=== PATIENT | female | born 1950 | race Caucasian/White ===

== ENCOUNTER 2018-03-18 20:47 | Emergency (ER) | payer BC, MEDICARE ==
[2018-03-18 21:23] LABS: BILIRUBIN,URINE NEGATIVE (NEGATIVE); GLUCOSE, URINE (UA) NEGATIVE (NEGATIVE); KETONES,URINE (UA) NEGATIVE (NEGATIVE); LEUKOCYTE ESTERASE, URINE LARGE (NEGATIVE); NITRITE,URINE POSITIVE (NEGATIVE); OCCULT BLOOD,URINE MODERATE (NEGATIVE); PROTEIN,URINE 100 mg/dL (NEGATIVE); UROBILINOGEN,URINE 0.2 (NORMAL) E.U./dL (NORMAL)
[2018-03-18 21:25] LABS: CLARITY,URINE CLEAR (CLEAR)
[2018-03-18 21:29] LABS: BACTERIA,URINE Moderate /HPF (None Seen); SQUAMOUS EPITHELIAL CELL,UR NONE SEEN (<= Few); WBC CLUMPS,URINE PRESENT
--- NOTE | 2018-03-18 21:53 | ED Physician Documentation ---
PD HPI FEMALE - Stated complaint Stated Complaint: FEMALE - Chief complaint Chief Complaint: Abd Pain - History obtained from History obtained from: Patient - History of Present Illness Timing - onset: How many days ago (2-3) Timing - duration: Days Timing - details: Gradual onset, Waxing and waning Associated symptoms: Dysuria, Urinary frequency. No: Fever, Abdominal pain, Back pain, Vaginal bleeding, Vaginal discharge Contributing factors: No: Exposed to STD Similar symptoms before: Diagnosis (utis in the past) Review of Systems Constitutional: denies: Fever, Chills GI: reports: Nausea. 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 HEENT: Tonsil/Adenoidectomy, Other - Present Medications Home Medications: Ambulatory Orders Medication Instructions Recorded Confirmed Sulfamethox/Trimeth 800/160 1 each PO BID #14 tablet 03/18/18 [Bactrim Ds 800/160] - Allergies Allergies/Adverse Reactions: Allergies Allergy/AdvReac Type Severity Reaction Status Date / Time Penicillins AdvReac Unknown Verified 03/18/18 20:59 - Social History Does the pt smoke?: Yes Smoking Status: Current every day smoker Does the pt drink ETOH?: No Does the pt have substance abuse?: Yes Substance Use and Type: Marijuana - Immunizations Immunizations are current?: Yes PD ED PE NORMAL - Vitals Vital signs reviewed: Yes - General General: Alert and oriented X 3, No acute distress, Well developed/nourished - Abdomen Abdomen: Soft, Non tender - Female Female : Deferred - Rectal Rectal: Deferred - Back Back: No CVA TTP - Derm Derm: Normal color, Warm and dry - Neuro Neuro: Alert and oriented X 3, No motor deficit, Normal speech Results - Vitals Vitals: Vital Signs - 24 hr 03/18/18 03/18/18 03/18/18 20:55 21:00 22:14 Temperature 36.6 C 37.4 C Heart Rate 111 H 98 Respiratory 18 20 Rate Blood Pressure 172/121 H 180/98 H 146/100 H O2 Saturation 96 98 Oxygen O2 Source Room air - Labs Labs: Microbiology 03/18/18 21:00 Urine Culture - Preliminary Urine,Clean Catch Escherichia Coli Laboratory Tests 03/18/18 21:00 Urine Color YELLOW Urine Clarity CLEAR Urine pH 7.0 Ur Specific Nathalie 1.020 Urine Protein 100 H Urine Glucose (UA) NEGATIVE Urine Ketones NEGATIVE Urine Occult Blood MODERATE H Urine Nitrite POSITIVE H Urine Bilirubin NEGATIVE Urine Urobilinogen 0.2 (NORMAL) Ur Leukocyte Esterase LARGE H Urine RBC 6-10 H Urine WBC >25 H Urine WBC Clumps PRESENT Ur Squamous Epith Cells NONE SEEN Urine Bacteria Moderate H Ur Microscopic Review INDICATED Urine Culture Comments INDICATED PD MEDICAL DECISION MAKING - ED course Complexity details: reviewed results, considered differential, d/w patient Departure - Departure Disposition: Home, Self Care Clinical Impression: Urinary tract infection Qualifiers: Urinary tract infection type: acute cystitis Hematuria presence: without hematuria Qualified Code(s): N30.00 - Acute cystitis without hematuria Condition: Stable Record reviewed to determine appropriate education?: Yes Instructions: ED UTI Cystitis Female Follow-Up: Caroline Adam MD [Primary Care Provider] - Prescriptions: Sulfamethox/Trimeth 800/160 [Bactrim Ds 800/160] 1 each PO BID #14 tablet Comments: Drink lots of fluids. You continue the [id number] medication for the bladder for comfort. Add Bactrim twice daily for a week. Recheck if not improved over the next couple of days. We will do a urine culture and call you if it appears that the antibiotic you are on is not going to be effective. This will result in a couple of days. Discharge Date/Time: 03/18/18 22:27
[2018-03-18] MEDS ORDERED: SULFAMETH/TRIMETH DS 800/160 MG TABLET PO STA (22:05)
[2018-03-18 22:22] VITALS: BP 146/100
== END 2018-03-18 22:27 | disposition home or self-care (01) ==
LOC: ED 20:47
DX: N30.00 Acute cystitis without hematuria (principal); F17.200 Nicotine dependence, unspecified, uncomplicated
CPT/HCPCS: 81001; 87086; 87181; 99283; A9270; 81003

== ENCOUNTER 2018-12-21 16:38 | Emergency (ER) | payer MEDICARE, OTHER ==
--- NOTE | 2018-12-21 16:44 | ED Physician Documentation ---
PD HPI FEMALE - Stated complaint Stated Complaint: FEMALE - Chief complaint Chief Complaint: UTI - History obtained from History obtained from: Patient - History of Present Illness Timing - onset: How many days ago (2-3) Timing - duration: Days (2-3) Timing - details: Gradual onset, Still present Associated symptoms: Dysuria, Urinary frequency. No: Fever, Back pain, Vaginal discharge Similar symptoms before: Diagnosis (UTIs occasionally) Recently seen: Not recently seen Review of Systems Constitutional: denies: Fever, Chills, Myalgias Cardiac: denies: Chest pain / pressure, Pedal edema, Calf pain Respiratory: denies: Dyspnea, Cough GI: reports: Nausea. 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 HEENT: Tonsil/Adenoidectomy, Other - Present Medications Home Medications: Ambulatory Orders Medication Instructions Recorded Confirmed Sulfamethox/Trimeth 800/160 1 each PO BID #14 tablet 03/18/18 [Bactrim Ds 800/160] Phenazopyridine HCl [Pyridium] 200 mg PO TID PRN #6 tablet 12/21/18 Sulfamethox/Trimeth 800/160 1 each PO BID #14 tablet 12/21/18 [Bactrim Ds 800/160] - Allergies Allergies/Adverse Reactions: Allergies Allergy/AdvReac Type Severity Reaction Status Date / Time Penicillins AdvReac Unknown Verified 03/18/18 20:59 - Social History Does the pt smoke?: Yes Smoking Status: Current every day smoker Does the pt drink ETOH?: No Does the pt have substance abuse?: Yes - Immunizations Immunizations are current?: Yes PD ED PE NORMAL - Vitals Vital signs reviewed: Yes - General General: Alert and oriented X 3, No acute distress, Well developed/nourished - Neck Neck: Supple, no meningeal sign, No adenopathy - Cardiac Cardiac: RRR, No murmur - Respiratory Respiratory: Clear bilaterally - Abdomen Abdomen: Normal bowel sounds, Soft, Non tender, Non distended - Female Female : Deferred - Back Back: No CVA TTP - Derm Derm: Normal color, Warm and dry, No rash - Extremities Extremities: No tenderness to palpate, Normal ROM s pain, No edema, No calf tenderness / cord - Neuro Neuro: Alert and oriented X 3, No motor deficit, Normal speech Results - Vitals Vitals: Oxygen O2 Source Room air - Labs Labs: Laboratory Tests 12/21/18 16:46 Urine Color YELLOW Urine Clarity HAZY Urine pH 6.5 Ur Specific [place] 1.020 Urine Protein NEGATIVE Urine Glucose (UA) NEGATIVE Urine Ketones NEGATIVE Urine Occult Blood NEGATIVE Urine Nitrite NEGATIVE Urine Bilirubin NEGATIVE Urine Urobilinogen 0.2 (NORMAL) Ur Leukocyte Esterase TRACE H Urine RBC 6-10 H Urine WBC 6-10 H Ur Squamous Epith Cells RARE Squamous Urine Bacteria None Seen Ur Microscopic Review INDICATED PD MEDICAL DECISION MAKING - ED course Complexity details: considered differential (BP is elevated her but she says normal is about 140-150/90 and is always very elevated when seen in office/etc but is okay at home. Has UTI symptoms and UA is consistent enough. ), d/w patient Departure - Departure Disposition: Home, Self Care Clinical Impression: Elevated blood pressure reading Cystitis, acute Qualifiers: Hematuria presence: without hematuria Qualified Code(s): N30.00 - Acute cystitis without hematuria Condition: Stable Record reviewed to determine appropriate education?: Yes Instructions: ED Hypertension Poss, ED UTI Cystitis Female Follow-Up: Caroline Adam MD [Primary Care Provider] - Prescriptions: Phenazopyridine HCl [Pyridium] 200 mg PO TID PRN #6 tablet PRN Reason: dysuria Sulfamethox/Trimeth 800/160 [Bactrim Ds 800/160] 1 each PO BID #14 tablet Comments: Your urine does look like an infection so we will treated with the Bactrim. He can use phenazopyridine either prescription or [id number] (Azo) to help with urinary discomfort. Tylenol or ibuprofen if needed for pains. Recheck if not improving over the next several days. Your blood pressure is elevated here. I understand that it elevates when you are have been medical care and such and it usually is better than that. Recheck at when you are well to ensure that it is not significantly elevated and follow- up with your primary care if it is consistently elevated. Discharge Date/Time: 12/21/18 17:28
[2018-12-21 16:55] LABS: BILIRUBIN,URINE NEGATIVE (NEGATIVE); GLUCOSE, URINE (UA) NEGATIVE (NEGATIVE); KETONES,URINE (UA) NEGATIVE (NEGATIVE); LEUKOCYTE ESTERASE, URINE TRACE (NEGATIVE); NITRITE,URINE NEGATIVE (NEGATIVE); OCCULT BLOOD,URINE NEGATIVE (NEGATIVE); PH,URINE 6.5 PH (5.0-7.5); PROTEIN,URINE NEGATIVE (NEGATIVE); UROBILINOGEN,URINE 0.2 (NORMAL) E.U./dL (NORMAL)
[2018-12-21 17:00] LABS: CLARITY,URINE HAZY (CLEAR)
[2018-12-21] MEDS ORDERED: PHENAZOPYRIDINE 100 MG TABLET PO STA (17:02)
[2018-12-21] MEDS ORDERED: SULFAMETH/TRIMETH DS 800/160 MG TABLET PO STA (17:02)
[2018-12-21 17:08] LABS: BACTERIA,URINE None Seen /HPF (None Seen); SQUAMOUS EPITHELIAL CELL,UR RARE Squamous (<= Few)
[2018-12-21 17:31] VITALS: BP 210/100
== END 2018-12-21 17:28 | disposition home or self-care (01) ==
LOC: ED 16:38
DX: N30.00 Acute cystitis without hematuria (principal); I10 Essential (primary) hypertension; F17.200 Nicotine dependence, unspecified, uncomplicated
CPT/HCPCS: 81001; 99283; A9270; 81003

== ENCOUNTER 2019-02-17 17:26 | Outpatient (CLI) | payer MEDICARE, OTHER ==
--- NOTE | 2019-02-18 10:03 | Ultrasound Report ---
Reason: RUQ PAIN Procedure Date: 02/17/2019 Accession Number: [id number] / [id number] Procedure: US - Abdomen Limited CPT Code: FULL RESULT: EXAM: ABDOMEN ULTRASOUND LIMITED, RUQ EXAM DATE: 02/17/2019 05:42 PM. CLINICAL HISTORY: Right upper quadrant abdominal pain. COMPARISON: None. TECHNIQUE: Real-time scanning was performed with static images obtained. FINDINGS: Liver: Normal in size and echotexture. Right lobe of the liver measures at least 18 cm. Within the liver is a 5.5 x 5.1 x 4.6 cm complex cyst in the left lobe as well as a 1.3 x 1.2 x 1.2 cm septated cyst near the hilum. Main portal vein flow: Hepatopetal. Gallbladder: Normal. No stones, wall thickening, or sonographic Cota's sign. Biliary System: CBD measures 4 mm. No intrahepatic or extrahepatic ductal dilatation. Other: The right kidney measures up to 10.1 cm in maximal sagittal dimension and demonstrates mild to moderate hydronephrosis. A nonobstructing 0.6 cm calculus is seen in the mid right kidney. A small amount of free perinephric fluid is noted, 2.7 x 0.8 cm. IMPRESSION: Hydronephrosis and a small amount of perinephric fluid as well as complex cystic lesions in the liver. RADIA
== END 2019-02-17 17:27 | disposition home or self-care (01) ==
LOC: DI 17:26
PROVIDERS: ATTEND Internal Medicine
DX: R10.11 Right upper quadrant pain (principal); N13.30 Unspecified hydronephrosis; N20.0 Calculus of kidney; K76.89 Other specified diseases of liver
CPT/HCPCS: 76705

== ENCOUNTER 2021-05-30 17:00 | Emergency (ER) | payer MEDICARE, OTHER ==
[2021-05-30 18:17] LABS: BASOPHILS # (AUTO) 0.1 10^3/uL (0.0-0.1); BASOPHILS % (AUTO) 0.7 %; EOSINOPHILS # (AUTO) 0.1 10^3/uL (0.0-0.7); EOSINOPHILS % (AUTO) 0.6 %; HCT - HEMATOCRIT 47.7 % (37.0-47.0); HGB - HEMOGLOBIN 16.1 g/dL (12.0-16.0); LYMPHOCYTES # (AUTO) 1.9 10^3/uL (1.5-3.5); LYMPHOCYTES % (AUTO) 19.3 %; MEAN CORPUSCULAR HEMOGLOBIN 30.2 pg (27.0-31.0); MEAN CORPUSCULAR HGB CONC 33.8 g/dL (32.0-36.0); MEAN CORPUSCULAR VOLUME 89.5 fL (81.0-99.0); MEAN PLATELET VOLUME 10.8 fL (7.9-10.8); MONOCYTES # (AUTO) 0.6 10^3/uL (0.0-1.0); MONOCYTES % (AUTO) 5.6 %; NEUTROPHILS # (AUTO) 7.3 10^3/uL (1.5-6.6); NEUTROPHILS % (AUTO) 73.4 %; PLT - PLATELET COUNT 337 10^3/uL (130-450); RED BLOOD COUNT 5.33 10^6/uL (4.20-5.40); RED CELL DISTRIBUTION WIDTH 12.4 % (12.0-15.0)
[2021-05-30] MEDS ORDERED: LORazepam 2 MG/ML VIAL IVP STA (18:23)
--- NOTE | 2021-05-30 18:26 | ED Physician Documentation ---
History of Present Illness - Stated complaint Stated Complaint: LISSETT GORDILLO HR - Chief complaint Chief Complaint: MHE - History obtained from History obtained from: Patient - Additonal information Additional information: Patient comes emergency department complaining of anxiety for the last month. She states it started when her dog and that before that, she was not somebody who really struggled with mental health issues. She does, however, state that she had been placed on Celexa around that time for "nervousness" and panic attacks. Patient states that she took the Celexa for 5 days but did not feel it was helping and thought that she may be getting worse on the Celexa and so instead, was switched to Zoloft. Patient has been on this for the last few weeks but states that her anxiety seems worse and so she has been taking spot doses of Xanax. However, she states her primary doctor is trying to wean her down on the Xanax. She was previously on 0.5 mg twice daily as needed, but is now on 0.25 mg. She states that it does not seem to be controlling her anxiety as much. She is also on hydroxyzine which was just started today by her mental health provider. She states that she took a dose at 10:00 this morning 25 mg, and it does not seem to be helping at all. Patient states she is just constantly having palpitations and feeling shaky and anxious. She states that she does sleep at night. She is not on any other substances. No history of thyroid disorder. No other complaints at this time. Review of Systems Ten Systems: 10 systems reviewed and negative Constitutional: reports: Reviewed and negative Eyes: reports: Reviewed and negative Ears: reports: Reviewed and negative Nose: reports: Reviewed and negative Throat: reports: Reviewed and negative Cardiac: reports: Palpitations. denies: Chest pain / pressure Respiratory: reports: Reviewed and negative. denies: Dyspnea GI: reports: Reviewed and negative. denies: Nausea : reports: Reviewed and negative Skin: reports: Reviewed and negative Musculoskeletal: reports: Reviewed and negative Neurologic: reports: Reviewed and negative Psychiatric: reports: Anxiety. 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 HEENT: Tonsil/Adenoidectomy, Other - Present Medications Home Medications: Ambulatory Orders Medication Instructions Recorded Confirmed Alprazolam [Xanax] 0.25 mg PO BID 05/30/21 05/30/21 Sertraline [Zoloft] 50 mg PO HS 05/30/21 05/30/21 hydrOXYzine pamoate [Hydroxyzine 25 mg PO TID PRN 05/30/21 05/30/21 Pamoate] - Allergies Allergies/Adverse Reactions: Allergies Allergy/AdvReac Type Severity Reaction Status Date / Time Penicillins AdvReac Unknown Verified 05/30/21 17:06 - Social History Does the pt smoke?: Yes Smoking Status: Current every day smoker Does the pt drink ETOH?: No Does the pt have substance abuse?: Yes - Immunizations Immunizations are current?: Yes PD ED PE NORMAL - Vitals Vital signs reviewed: Yes - General General: Alert and oriented X 3, Other (Patient appears anxious, otherwise in no apparent distress) - HEENT HEENT: Atraumatic, PERRL, EOMI, Moist mucous membranes - Neck Neck: Supple, no meningeal sign - Cardiac Cardiac: No murmur, Other (Tachycardic rate, regular rhythm, no murmur) - Respiratory Respiratory: No respiratory distress, Clear bilaterally - Abdomen Abdomen: Soft, Non distended - Derm Derm: Normal color, Warm and dry, No rash - Extremities Extremities: No deformity, No edema - Neuro Neuro: Alert and oriented X 3, manufacturing 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 No: Q waves Compare to prior EKG: Old EKG unavailable - Labs Labs: Laboratory Tests 08/03/1505/30/21 05/30/21 18:12 18:12 18:12 WBC 10.0 RBC 5.33 Hgb 16.1 H Hct 47.7 H MCV 89.5 MCH 30.2 MCHC 33.8 RDW 12.4 Plt Count 337 MPV 10.8 Neut # (Auto) 7.3 H Lymph # (Auto) 1.9 Gillespie # (Auto) 0.6 Eos # (Auto) 0.1 Baso # (Auto) 0.1 Absolute Nucleated RBC 0.00 Nucleated RBC % 0.0 Sodium 141 Potassium 3.6 Chloride 102 Carbon Dioxide 23 Anion Gap 16.0 H BUN 13 Creatinine 0.7 Estimated GFR (MDRD) 83 L Glucose 111 H Calcium 9.8 Total Bilirubin 0.9 AST 17 ALT 19 Alkaline Phosphatase 89 Troponin I High Sens 3.5 Total Protein 8.7 H Albumin 5.0 Globulin 3.7 Albumin/Globulin Ratio 1.4 Lipase 29 TSH 05/30/21 18:12 WBC RBC Hgb Hct MCV MCH MCHC RDW Plt Count MPV Neut # (Auto) Lymph # (Auto) Gillespie # (Auto) Eos # (Auto) Baso # (Auto) Absolute Nucleated RBC Nucleated RBC % Sodium Potassium Chloride Carbon Dioxide Anion Gap BUN Creatinine Estimated GFR (MDRD) Glucose Calcium Total Bilirubin AST ALT Alkaline Phosphatase Troponin I High Sens Total Protein Albumin Globulin Albumin/Globulin Ratio Lipase TSH 2.53 PD MEDICAL DECISION MAKING - ED course Complexity details: reviewed results, re-evaluated patient, considered differential, d/w patient ED course: The patient was quite anxious in the emergency department and I spoke at length with her to try to determine exactly what she was hoping to accomplish by her visit. The patient initially complained that she felt that her medications were all making her more anxious. She wanted to have her Zoloft dose cut in half, but I told the patient that I did not change chronic medications from the emergency department, particularly psychiatric meds. Additionally, the patient wanted to know why her new medication was not working after 1 dose and I did discuss with her that she has just started this medication so was too early to tell whether it would work or not. We did discuss increasing dosing potentially on her Xanax, though it does sound like her provider is trying to wean her down on this in favor of a more chronic regimen. I discussed with the patient that perhaps her anxiety is partially related to grief over the loss of her dog, but the patient was resistant to this idea. She repeatedly asked why she keeps having anxiety, but was not really open to social work evaluation, stating that she has never had mental health issues before and she does not think that she needs to speak with a mental health clinician about this. The patient however stated she "just wants to know what is going on". At this point explained to her that our role in the emergency department with regard to mental health crises and that this involves treating the acute episode, medical clearance, and then the decision as to whether to pursue outpatient or inpatient options for further treatment. The patient at this point stated that she really just wants to know if her heart is okay because has been racing every time she has an anxiety attack. We discussed that I would order basic laboratory studies and EKG and at this point patient also did accept the idea of having a dose of an anxiolytic in the emergency department. She was given 2 mg of Ativan IV. Her EKG showed diffuse, nondiagnostic ST depressions of less than 1 mm throughout most of her leads and troponin was negative. At this point in time, the patient will be signed out to Dr. Young pending repeat EKG and troponin. She will also be pending reevaluation and final disposition.
[2021-05-30 18:34] LABS: ALBUMIN/GLOBULIN RATIO 1.4 (1.0-2.2); BILIRUBIN,TOTAL 0.9 mg/dL (0.2-1.0); CALCIUM 9.8 mg/dL (8.5-10.3); CREATININE 0.7 mg/dL (0.4-1.0); POTASSIUM 3.6 mmol/L (3.5-5.0); TOTAL PROTEIN 8.7 g/dL (6.7-8.2)
[2021-05-30 22:01] VITALS: BP 135/95
--- NOTE | 2021-05-31 09:21 | ED Physician Documentation ---
ED Addendum - Addendum Addendum: 05/31/21 09:[address] received sign out from Dr. Avalos at end of her shift. patient presented for episodic rapid palpitations without chest pain. possible component of anxiety. EKG showed minimal but diffuse ST depression (1 mm in V3-V6, I, aVL). normal troponin. she was given 2mg IV lorazepam and reported significant improvement with this. Her repeat EKG shows 106 bpm, sinus tachycardia, normal axis, isolated QIII but no ST changes. her repeat (2-hour) troponin remains normal, and d-dimer is also normal. I discussed these results with patient and she is comfortable with discharge home. As noted on Dr. Avalos's HPI, patient tells me her PMD is weaning her off of xanax. She was prescribed hydroxyzine earlier today but says she had no improvement in her symptoms with this medication. I provided a prescription for a short course of lorazepam which she is instructed to use sparingly and only if her current regimen is ineffective in controlling rapid palpitations if they are associated with anxiety. she is encouraged to return if worse in any way.
== END 2021-05-30 22:00 | disposition home or self-care (01) ==
LOC: ED 17:00
DX: R00.2 Palpitations (principal); F41.9 Anxiety disorder, unspecified; I10 Essential (primary) hypertension; H54.7 Unspecified visual loss; F17.200 Nicotine dependence, unspecified, uncomplicated
CPT/HCPCS: 36415; 80053; 83690; 84443; 84484; 85025; 85379; 93005; 96374; 99283; 99284; J2060

== ENCOUNTER 2021-06-04 10:58 | Emergency (ER) | payer MEDICARE, OTHER ==
[2021-06-04] MEDS ORDERED: LORazepam 0.5 MG TABLET PO STA (13:04)
--- NOTE | 2021-06-04 13:12 | ED Physician Documentation ---
History of Present Illness - Stated complaint Stated Complaint: MHE - Chief complaint Chief Complaint: General - History obtained from History obtained from: Patient, Friend - History of Present Illness Timing: Other (1 month) Pain level max: 0 Pain level now: 0 - Additonal information Additional information: 70-year-old female states she has had increasing anxiety over the past month. She states that this is worsened since her dog . She has been working with her doctor and a prescriber. She was on Xanax and said that this was helping but they did not want to have her on Xanax long-term. They tried Cymbalta and now Zoloft. She has also been trialed on hydroxyzine. She states she just does not feel well and does not know what to do. She feels like she is very anxious and having panic attacks. She states she was seen here a week ago and was given Ativan which helped. She does not feel suicidal or homicidal. 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 HEENT: Chronic vision loss Psych: Anxiety Derm: None - Past Surgical History Past Surgical History: Yes /CUTTER APPRENTICE HAND: Hysterectomy HEENT: Tonsil/Adenoidectomy, Other - Present Medications Home Medications: Ambulatory Orders Medication Instructions Recorded Confirmed Alprazolam [Xanax] 0.25 mg PO BID 05/30/21 05/30/21 LORazepam [Ativan] 0.5 mg PO TID PRN #10 tablet 05/30/21 Sertraline [Zoloft] 50 mg PO HS 05/30/21 05/30/21 hydrOXYzine pamoate [Hydroxyzine 25 mg PO TID PRN 05/30/21 05/30/21 Pamoate] LORazepam [Ativan] 0.5 mg PO Q8H PRN #7 tablet 06/04/21 cephALEXin [Keflex] 500 mg PO Q6H #20 cap 06/04/21 - Allergies Allergies/Adverse Reactions: Allergies Allergy/AdvReac Type Severity Reaction Status Date / Time nitrofurantoin AdvReac Unknown Verified 06/04/21 16:29 [From Macrobid] Penicillins AdvReac Unknown Verified 06/04/21 11:19 sulfamethoxazole AdvReac Nausea Verified 06/04/21 16:29 [From Bactrim] trimethoprim [From Bactrim] AdvReac Nausea Verified 06/04/21 16:29 - Social History Does the pt smoke?: Yes Smoking Status: Current every day smoker Does the pt drink ETOH?: No Does the pt have substance abuse?: Yes - Immunizations Immunizations are current?: Yes - POLST Patient has POLST: No PD ED PE NORMAL - Vitals Vital signs reviewed: Yes - General General: Alert and oriented X 3, No acute distress - HEENT HEENT: Moist mucous membranes, Other (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) - Neck Neck: Supple, no meningeal sign - Cardiac Cardiac: RRR - Respiratory Respiratory: No respiratory distress, Clear bilaterally - Derm Derm: Warm and dry - Neuro Neuro: Alert and oriented X 3 - Psych Psych: Other (Anxious appearing) Results - Vitals Vitals: Vital Signs - 24 hr 06/04/21 06/04/21 06/04/21 11:11 16:02 22:28 Temperature 36.8 C 36.7 C 36.7 C Heart Rate 96 95 72 Respiratory 18 16 17 Rate Blood Pressure 151/104 H 153/95 H 183/100 H O2 Saturation 98 97 100 Oxygen O2 Source Room air - EKG (time done) 1349 Rate: Rate (enter#) (93) Rhythm: NSR [place]: Normal Intervals: Normal IA QRS: Normal Ischemia: Non specific changes - Labs Labs: Laboratory Tests 06/04/21 06/04/21 06/04/21 13:42 13:42 13:42 WBC 13.2 H RBC 5.20 Hgb 15.8 Hct 46.1 MCV 88.7 MCH 30.4 MCHC 34.3 RDW 12.6 Plt Count 304 MPV 11.0 H Neut # (Auto) 10.8 H Lymph # (Auto) 1.7 Hughes # (Auto) 0.6 Eos # (Auto) 0.0 Baso # (Auto) 0.1 Absolute Nucleated RBC 0.00 Nucleated RBC % 0.0 Sodium 141 Potassium 3.8 Chloride 104 Carbon Dioxide 22 Anion Gap 15.0 H BUN 15 Creatinine 0.7 Estimated GFR (MDRD) 83 L Glucose 95 Calcium 9.6 Phosphorus 4.1 Magnesium 2.2 Total Bilirubin 0.9 AST 18 ALT 20 Alkaline Phosphatase 88 Total Creatine Kinase Total Protein 7.6 Albumin 4.6 Globulin 3.0 Albumin/Globulin Ratio 1.5 Lipase 37 TSH 1.49 Urine Color Urine Clarity Urine pH Ur Specific [place] Urine Protein Urine Glucose (UA) Urine Ketones Urine Occult Blood Urine Nitrite Urine Bilirubin Urine Urobilinogen Ur Leukocyte Esterase Urine RBC Urine WBC Ur Epithelial Cells Ur Squamous Epith Cells Urine Bacteria Ur Microscopic Review Urine Culture Comments Nasal Adenovirus (PCR) Nasal B. parapertussis DNA (PCR) Nasal Coronavir 229E PCR Nasal Coronavir HKU1 PCR Nasal Coronavir NL63 PCR Nasal Coronavir OC43 PCR Nasal Enterovir/Rhinovir PCR Nasal Influenza B PCR Nasal Influenza A PCR Nasal Parainfluen 1 PCR Nasal Parainfluen 2 PCR Nasal Parainfluen 3 PCR Nasal Parainfluen 4 PCR Nasal RSV (PCR) Nasal B.pertussis DNA PCR Nasal C.pneumoniae (PCR) Narendra Human Metapneumo PCR Nasal M.pneumoniae (PCR) Nasal SARS-CoV-2 (PCR) Salicylates < 6.0 Urine Opiates Screen Ur Oxycodone Screen Urine Methadone Screen Ur Propoxyphene Screen Acetaminophen < 10 L Ur Barbiturates Screen Ur Tricyclics Screen Ur Phencyclidine Scrn Ur Amphetamine Screen U Methamphetamines Scrn U Benzodiazepines Scrn Urine Cocaine Screen U Cannabinoids Screen Ethyl Alcohol < 5.0 06/04/21 06/04/21 06/04/21 15:30 15:30 18:58 WBC RBC Hgb Hct MCV MCH MCHC RDW Plt Count MPV Neut # (Auto) Lymph # (Auto) Hughes # (Auto) Eos # (Auto) Baso # (Auto) Absolute Nucleated RBC Nucleated RBC % Sodium Potassium Chloride Carbon Dioxide Anion Gap BUN Creatinine Estimated GFR (MDRD) Glucose Calcium Phosphorus Magnesium Total Bilirubin AST ALT Alkaline Phosphatase Total Creatine Kinase 29 Total Protein Albumin Globulin Albumin/Globulin Ratio Lipase TSH Urine Color YELLOW Urine Clarity CLEAR Urine pH 6.0 Ur Specific [place] 1.010 Urine Protein NEGATIVE Urine Glucose (UA) NEGATIVE Urine Ketones 15 H Urine Occult Blood TRACE-INTA Urine Nitrite POSITIVE H Urine Bilirubin NEGATIVE Urine Urobilinogen 0.2 (NORMAL) Ur Leukocyte Esterase MODERATE H Urine RBC 0-5 Urine WBC 11-25 H Ur Epithelial Cells RARE Transitional Ur Squamous Epith Cells RARE Squamous Urine Bacteria Many H Ur Microscopic Review INDICATED Urine Culture Comments INDICATED Nasal Adenovirus (PCR) NOT DETECTED Nasal B. parapertussis DNA (PCR) NOT DETECTED Nasal Coronavir 229E PCR NOT DETECTED Nasal Coronavir HKU1 PCR NOT DETECTED Nasal Coronavir NL63 PCR NOT DETECTED Nasal Coronavir OC43 PCR NOT DETECTED Nasal Enterovir/Rhinovir PCR NOT DETECTED Nasal Influenza B PCR NOT DETECTED Nasal Influenza A PCR NOT DETECTED Nasal Parainfluen 1 PCR NOT DETECTED Nasal Parainfluen 2 PCR NOT DETECTED Nasal Parainfluen 3 PCR NOT DETECTED Nasal Parainfluen 4 PCR NOT DETECTED Nasal RSV (PCR) NOT DETECTED Nasal B.pertussis DNA PCR NOT DETECTED Nasal C.pneumoniae (PCR) NOT DETECTED Narendra Human Metapneumo PCR NOT DETECTED Nasal M.pneumoniae (PCR) NOT DETECTED Nasal SARS-CoV-2 (PCR) NOT DETECTED Salicylates Urine Opiates Screen NEGATIVE Ur Oxycodone Screen NEGATIVE Urine Methadone Screen NEGATIVE Ur Propoxyphene Screen NEGATIVE Acetaminophen Ur Barbiturates Screen NEGATIVE Ur Tricyclics Screen NEGATIVE Ur Phencyclidine Scrn NEGATIVE Ur Amphetamine Screen NEGATIVE U Methamphetamines Scrn NEGATIVE U Benzodiazepines Scrn POSITIVE H Urine Cocaine Screen NEGATIVE U Cannabinoids Screen POSITIVE H Ethyl Alcohol PD MEDICAL DECISION MAKING - ED course Complexity details: reviewed results, re-evaluated patient, considered differential, d/w patient ED course: 70-year-old female with significant anxiety. Social work was consulted, attempted inpatient placement, but patient is not acute enough for inpatient care. There were no beds available at respite care either. The patient states that she feels much better and is comfortable going home and following up with the resources and counselors given to her by social work today. She is not suicidal or homicidal. She will follow up with her doctor tomorrow as well. Patient counseled regarding signs and symptoms for which I believe and urgent re-evaluation would be necessary. Patient with good understanding of and agreement to plan and is comfortable going home at this time This document was made in part using voice recognition software. While efforts are made to proofread this document, sound alike and grammatical errors may occur. Departure - Departure Disposition: Home, Self Care Clinical Impression: Anxiety Urinary tract infection Qualifiers: Urinary tract infection type: acute cystitis Hematuria presence: without hematuria Qualified Code(s): N30.00 - Acute cystitis without hematuria Condition: Good Instructions: ED Panic Attack, ED UTI Cystitis Female Follow-Up: your,doctor tomorrow [Other] Caroline Adam MD [Provider Admit Priv/Credential] - Prescriptions: LORazepam [Ativan] 0.5 mg PO Q8H PRN #7 tablet PRN Reason: Anxiety cephALEXin [Keflex] 500 mg PO Q6H #20 cap Comments: You can use the Ativan as needed for anxiety. Take all antibiotics until gone. Make sure to follow-up with a counselor, your prescriber and your doctor tomorrow. Return if you worsen Discharge Date/Time: 06/04/21 22:33
[2021-06-04 13:48] LABS: BASOPHILS # (AUTO) 0.1 10^3/uL (0.0-0.1); BASOPHILS % (AUTO) 0.5 %; EOSINOPHILS % (AUTO) 0.2 %; HCT - HEMATOCRIT 46.1 % (37.0-47.0); HGB - HEMOGLOBIN 15.8 g/dL (12.0-16.0); LYMPHOCYTES # (AUTO) 1.7 10^3/uL (1.5-3.5); LYMPHOCYTES % (AUTO) 12.9 %; MEAN CORPUSCULAR HEMOGLOBIN 30.4 pg (27.0-31.0); MEAN CORPUSCULAR HGB CONC 34.3 g/dL (32.0-36.0); MEAN CORPUSCULAR VOLUME 88.7 fL (81.0-99.0); MONOCYTES # (AUTO) 0.6 10^3/uL (0.0-1.0); MONOCYTES % (AUTO) 4.8 %; NEUTROPHILS # (AUTO) 10.8 10^3/uL (1.5-6.6); NEUTROPHILS % (AUTO) 81.3 %; PLT - PLATELET COUNT 304 10^3/uL (130-450); RED CELL DISTRIBUTION WIDTH 12.6 % (12.0-15.0); WHITE BLOOD COUNT 13.2 x10^3/uL (4.8-10.8)
[2021-06-04 14:06] LABS: ACETAMINOPHEN < 10 ug/mL (10-30); ALBUMIN 4.6 g/dL (3.2-5.5); ALBUMIN/GLOBULIN RATIO 1.5 (1.0-2.2); ALKALINE PHOSPHATASE 88 IU/L (42-121); ALT ALANINE AMINOTRANSFERASE 20 IU/L (10-60); AST ASPARTATE AMINOTRANSFERASE 18 IU/L (10-42); BILIRUBIN,TOTAL 0.9 mg/dL (0.2-1.0); BUN - BLOOD UREA NITROGEN 15 mg/dL (6-20); CALCIUM 9.6 mg/dL (8.5-10.3); CARBON DIOXIDE - CO2 22 mmol/L (21-32); CHLORIDE 104 mmol/L (101-111); CREATININE 0.7 mg/dL (0.4-1.0); ETOH - ETHANOL < 5.0 mg/dL; GFR - MDRD 83 (>89); GLUCOSE 95 mg/dL (70-100); LIPASE 37 U/L (22-51); MAGNESIUM 2.2 mg/dL (1.7-2.8); PHOSPHORUS 4.1 mg/dL (2.5-4.6); POTASSIUM 3.8 mmol/L (3.5-5.0); SALICYLATE < 6.0 mg/dL; SODIUM 141 mmol/L (135-145); TOTAL PROTEIN 7.6 g/dL (6.7-8.2)
[2021-06-04 15:39] LABS: MUDS CUTOFF CONCENTRATIONS CUTOFF CONC BELOW:
[2021-06-04 15:48] LABS: BILIRUBIN,URINE NEGATIVE (NEGATIVE); GLUCOSE, URINE (UA) NEGATIVE (NEGATIVE); KETONES,URINE (UA) 15 mg/dL (NEGATIVE); LEUKOCYTE ESTERASE, URINE MODERATE (NEGATIVE); NITRITE,URINE POSITIVE (NEGATIVE); OCCULT BLOOD,URINE TRACE-INTA (NEGATIVE); PROTEIN,URINE NEGATIVE (NEGATIVE); UROBILINOGEN,URINE 0.2 (NORMAL) E.U./dL (NORMAL)
[2021-06-04 15:49] LABS: CLARITY,URINE CLEAR (CLEAR)
[2021-06-04 15:57] LABS: AMPHETAMINE SCREEN,URINE NEGATIVE (NEGATIVE); BENZODIAZEPINES SCREEN, URINE POSITIVE (NEGATIVE); COCAINE SCREEN URINE NEGATIVE (NEGATIVE); METHADONE SCREEN, URINE NEGATIVE (NEGATIVE); METHAMPHETAMINES SCREEN, URINE NEGATIVE (NEGATIVE); OPIATE SCREEN, URINE NEGATIVE (NEGATIVE); THC CANNABINOID SCREEN, URINE POSITIVE (NEGATIVE); TRICYCLIC ANTIDEPRESSANT,URINE NEGATIVE (NEGATIVE)
[2021-06-04 15:58] LABS: BARBITURATE SCREEN,UR NEGATIVE (NEGATIVE); OXYCODONE SCREEN, URINE NEGATIVE (NEGATIVE); PROPOXYPHENE SCREEN, URINE NEGATIVE (NEGATIVE)
[2021-06-04 16:02] LABS: BACTERIA,URINE Many /HPF (None Seen); EPITHELIAL CELLS,UR RARE Transitional /HPF (<= Few); RBC,URINE 0-5 /HPF (0-5); SQUAMOUS EPITHELIAL CELL,UR RARE Squamous (<= Few)
[2021-06-04] MEDS ORDERED: NITROFURANTOIN MACRO 100 MG CAPSULE PO STA (16:10)
[2021-06-04 16:29] LABS: CORONAVIRUS 229E-RESP PCR NOT DETECTED; CORONAVIRUS HKU1-RESP PCR NOT DETECTED; CORONAVIRUS NL63-RESP PCR NOT DETECTED; CORONAVIRUS OC43-RESP PCR NOT DETECTED; HUMAN METAPNEUMOVIRUS NOT DETECTED; INFLUENZA A- RESP PCR PANEL NOT DETECTED; RHINOVIRUS/ENTEROVIRUS NOT DETECTED; SARS-CoV-2 -RESP PCR PANEL NOT DETECTED
[2021-06-04 16:30] LABS: B. PARAPERTUSSIS- RESP PCR PAN NOT DETECTED; B. PERTUSSIS- RESP PCR PANEL NOT DETECTED; C. PNEUMONIAE- RESP PCR PANEL NOT DETECTED; INFLUENZA B - RESP PCR PANEL NOT DETECTED; M. PNEUMONIAE- RESP PCR PANEL NOT DETECTED; PARAINFLUENZA VIRUS 1 NOT DETECTED; PARAINFLUENZA VIRUS 2 NOT DETECTED; PARAINFLUENZA VIRUS 3 NOT DETECTED; PARAINFLUENZA VIRUS 4 NOT DETECTED; RSV- RESP PCR PANEL NOT DETECTED
[2021-06-04] MEDS ORDERED: cephALEXin 250 MG CAPSULE PO STA (16:31)
[2021-06-04] MEDS ORDERED: LORazepam 1 MG TABLET PO STA (19:29)
[2021-06-04 22:32] VITALS: BP 183/100
== END 2021-06-04 22:33 | disposition home or self-care (01) ==
LOC: ED 10:58
DX: F41.9 Anxiety disorder, unspecified (principal); N30.00 Acute cystitis without hematuria; I10 Essential (primary) hypertension; K21.9 Gastro-esophageal reflux disease without esophagitis; H54.7 Unspecified visual loss; F17.200 Nicotine dependence, unspecified, uncomplicated; Z20.822 Contact with and (suspected) exposure to COVID-19
CPT/HCPCS: 36415; 80053; 80306; 80307; 81001; 82550; 83690; 83735; 84100; 84443; 85025; 87086; 87181; 87631; 93005; 99284; A9270; G0480; J8499; 0202U; 80320; 80329; 81003

== ENCOUNTER 2021-06-10 07:44 | Emergency (ER) | payer MEDICARE, OTHER ==
--- NOTE | 2021-06-10 08:41 | XRAY Report ---
PROCEDURE: Chest 1 View X-Ray INDICATIONS: Chest pain TECHNIQUE: One view of the chest was acquired. COMPARISON: None FINDINGS: Surgical changes and devices: None. Lungs and pleura: No pleural effusions or pneumothorax. Lungs are clear. Mediastinum: Mediastinal contours appear normal. Heart size is normal. Bones and chest wall: No suspicious bony lesions. Overlying soft tissues appear unremarkable. IMPRESSION: No acute cardiopulmonary process. Reviewed by: Gianfranco Alex MD on 06/10/2021 8:40 AM PDT Approved by: Gianfranco Alex MD on 06/10/2021 8:40 AM PDT Station ID: [id number]
[2021-06-10 08:46] LABS: BASOPHILS # (AUTO) 0.1 10^3/uL (0.0-0.1); BASOPHILS % (AUTO) 0.7 %; EOSINOPHILS # (AUTO) 0.1 10^3/uL (0.0-0.7); EOSINOPHILS % (AUTO) 0.7 %; HCT - HEMATOCRIT 41.2 % (37.0-47.0); HGB - HEMOGLOBIN 14.1 g/dL (12.0-16.0); LYMPHOCYTES # (AUTO) 1.4 10^3/uL (1.5-3.5); LYMPHOCYTES % (AUTO) 19.4 %; MEAN CORPUSCULAR HEMOGLOBIN 30.4 pg (27.0-31.0); MEAN CORPUSCULAR HGB CONC 34.2 g/dL (32.0-36.0); MEAN CORPUSCULAR VOLUME 88.8 fL (81.0-99.0); MONOCYTES # (AUTO) 0.5 10^3/uL (0.0-1.0); MONOCYTES % (AUTO) 6.2 %; NEUTROPHILS # (AUTO) 5.3 10^3/uL (1.5-6.6); NEUTROPHILS % (AUTO) 72.7 %; PLT - PLATELET COUNT 254 10^3/uL (130-450); RED BLOOD COUNT 4.64 10^6/uL (4.20-5.40); RED CELL DISTRIBUTION WIDTH 12.7 % (12.0-15.0); WHITE BLOOD COUNT 7.3 x10^3/uL (4.8-10.8)
--- NOTE | 2021-06-10 08:57 | ED Physician Documentation ---
History of Present Illness - Stated complaint Stated Complaint: SOA/SHAKY - Chief complaint Chief Complaint: General - History obtained from History obtained from: Patient - History of Present Illness Timing: How many weeks ago (4) - Additonal information Additional information: 70-year-old female has had the of her garrido retriever that she had for 15-1/2 years about 1 month ago. She has developed some anxiety that she has never had previously and she had some improvement with use of Xanax and she has been trialed on 3 different courses of SSRIs. Each time she tries 1 of these her symptoms worsen after 2 to 3 days. She states that she feels normal after taking some benzodiazepine. She has been in to see the doctor as well about urinary tract infection and she has been on a number of different antibiotics over the past month. Review of Systems Constitutional: denies: Fever Eyes: denies: Decreased vision Ears: denies: Ear pain Nose: denies: Congestion Throat: denies: Sore throat Cardiac: denies: Chest pain / pressure, Palpitations Respiratory: reports: Dyspnea. 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: Hysterectomy HEENT: Tonsil/Adenoidectomy, Other - Present Medications Home Medications: Ambulatory Orders Medication Instructions Recorded Confirmed Alprazolam [Xanax] 0.25 mg PO BID 05/30/21 05/30/21 LORazepam [Ativan] 0.5 mg PO TID PRN #10 tablet 05/30/21 Sertraline [Zoloft] 50 mg PO HS 05/30/21 05/30/21 hydrOXYzine pamoate [Hydroxyzine 25 mg PO TID PRN 05/30/21 05/30/21 Pamoate] LORazepam [Ativan] 0.5 mg PO Q8H PRN #7 tablet 06/04/21 cephALEXin [Keflex] 500 mg PO Q6H #20 cap 06/04/21 LORazepam [Ativan] 0.5 mg PO Q8HR PRN #20 tablet 06/10/21 - Allergies Allergies/Adverse Reactions: Allergies Allergy/AdvReac Type Severity Reaction Status Date / Time nitrofurantoin AdvReac Unknown Verified 06/10/21 07:59 [From Macrobid] Penicillins AdvReac Unknown Verified 06/10/21 07:59 sulfamethoxazole AdvReac Nausea Verified 06/10/21 07:59 [From Bactrim] trimethoprim [From Bactrim] AdvReac Nausea Verified 06/10/21 07:59 - Social History Does the pt smoke?: Yes Smoking Status: Current every day smoker Does the pt drink ETOH?: No Does the pt have substance abuse?: Yes - Immunizations Immunizations are current?: Yes - POLST Patient has POLST: No PD ED PE NORMAL - Vitals Vital signs reviewed: Yes (hypertensive ) - General General: Alert and oriented X 3, Well developed/nourished, Other (teary eyed, anxious ) - HEENT HEENT: Atraumatic, PERRL, EOMI - Neck Neck: Supple, no meningeal sign, No bony TTP - Cardiac Cardiac: RRR, No murmur - Respiratory Respiratory: No respiratory distress, Clear bilaterally - Abdomen Abdomen: Soft, Non tender - Back Back: No CVA TTP, No spinal TTP - Derm Derm: Normal color, Warm and dry, No rash - Extremities Extremities: No deformity, No edema - Neuro Neuro: Alert and oriented X 3, 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, No motor deficit, No sensory deficit, Normal speech Eye Opening: Spontaneous Motor: Obeys Commands Verbal: Oriented GCS Score: 15 - Psych Psych: Other (mood is anxious and the affect is labile ) Results - Vitals Vitals: Vital Signs - 24 hr 06/10/21 06/10/21 06/10/21 07:56 08:29 10:10 Temperature 36.4 C L Heart Rate 90 60 73 Respiratory 22 20 16 Rate Blood Pressure 169/70 H 174/88 H 155/118 H O2 Saturation 98 96 96 Oxygen O2 Source Room air - EKG (time done) 0809 Rate: Rate (enter#) (72) Rhythm: NSR Ischemia: Non specific changes Compare to prior EKG: Changed from prior EKG (SPT 8-10-21 the rate has slowed) Computer interpretation: Agree with computer - Labs Labs: Laboratory Tests 06/10/21 06/10/21 06/10/21 08:41 08:41 08:41 WBC 7.3 RBC 4.64 Hgb 14.1 Hct 41.2 MCV 88.8 MCH 30.4 MCHC 34.2 RDW 12.7 Plt Count 254 MPV 11.0 H Neut # (Auto) 5.3 Lymph # (Auto) 1.4 L [place] # (Auto) 0.5 Eos # (Auto) 0.1 Baso # (Auto) 0.1 Absolute Nucleated RBC 0.00 Nucleated RBC % 0.0 Sodium 136 Potassium 3.2 L Chloride 104 Carbon Dioxide 20 L Anion Gap 12.0 BUN 11 Creatinine 0.6 Estimated GFR (MDRD) 99 Glucose 126 H Calcium 9.0 Total Bilirubin 0.6 AST 16 ALT 19 Alkaline Phosphatase 77 Troponin I High Sens 3.7 Total Protein 6.9 Albumin 3.9 Globulin 3.0 Albumin/Globulin Ratio 1.3 Lipase 27 TSH 06/10/21 08:41 WBC RBC Hgb Hct MCV MCH MCHC RDW Plt Count MPV Neut # (Auto) Lymph # (Auto) [place] # (Auto) Eos # (Auto) Baso # (Auto) Absolute Nucleated RBC Nucleated RBC % Sodium Potassium Chloride Carbon Dioxide Anion Gap BUN Creatinine Estimated GFR (MDRD) Glucose Calcium Total Bilirubin AST ALT Alkaline Phosphatase Troponin I High Sens Total Protein Albumin Globulin Albumin/Globulin Ratio Lipase TSH 2.37 - Rads (name of study) chest Radiology: Prelim report reviewed (Impression: No acute cardiopulmonary abnormality.), EMP read indepedently, See rad report PD MEDICAL DECISION MAKING - ED course Complexity details: reviewed old records, reviewed results, re-evaluated patient, considered differential, d/w patient ED course: 70-year-old female with history of hypertension and anxiety has had her dog recently and she has had increased anxiety. She relates history that every time that she has tried 1 of these different agents the SSRIs she has had an increase worsening of her symptoms. She feels normal when she is taken some Ativan. She has reactionary grief to the loss of Elizabeth, her yellow lab. She indicates that she has not been able to cry when she is taking the SSRI as well.I have asked patient to stop her SSRI and to rely on her Ativan on an as-needed basis for treatment of anxiety. I discussed with her the grieving process that may last up to 6 months as normal. The patient does have a counselor who she has not yet seen. I have encouraged the patient to follow-up with the counselor as well. Departure - Departure Disposition: 01 Home, Self Care Clinical Impression: Grief reaction Condition: Stable Instructions: ED Grief Reaction Follow-Up: Caroline Adam MD [Provider Admit Priv/Credential] - Prescriptions: LORazepam [Ativan] 0.5 mg PO Q8HR PRN #20 tablet PRN Reason: Anxiety Comments: Today it appears the anxiety you are experiencing is related to a grief reaction and this should have a defined course and not be prolonged. In this situation the use of the Ativan on a temporary basis is reasonable. It appears that the addition of the class of medications the SSRIs have caused an increase in your symptoms and my recommendation is to discontinue the use of the Paxil. Follow- up with Dr. Adam for further prescriptions of Ativan. Grieving can take up to 6 months on a normal basis and grieving going beyond that is considered pathologic.The use of Ativan and the class of medications known as the benzodiazepines can be problematic if used on a regular basis for an extended period of time. The problem with him is that they can be difficult to get off of. Be aware that it may take some time to taper off of this medication when you do discontinue it if you use it for more than a month.
[2021-06-10 09:06] LABS: ALBUMIN 3.9 g/dL (3.2-5.5); ALBUMIN/GLOBULIN RATIO 1.3 (1.0-2.2); BILIRUBIN,TOTAL 0.6 mg/dL (0.2-1.0); CREATININE 0.6 mg/dL (0.4-1.0); POTASSIUM 3.2 mmol/L (3.5-5.0); TOTAL PROTEIN 6.9 g/dL (6.7-8.2)
[2021-06-10] MEDS ORDERED: POTASSIUM CHLORIDE 20 MEQ TABLET PO STA (09:29)
[2021-06-10 10:11] VITALS: BP 155/118
== END 2021-06-10 10:26 | disposition home or self-care (01) ==
LOC: ED 07:44
DX: F43.20 Adjustment disorder, unspecified (principal); F41.9 Anxiety disorder, unspecified; I10 Essential (primary) hypertension; H54.7 Unspecified visual loss; F17.200 Nicotine dependence, unspecified, uncomplicated
CPT/HCPCS: 36415; 71045; 80053; 83690; 84443; 84484; 85025; 93005; 99284; A9270

== ENCOUNTER 2021-10-29 09:41 | Outpatient (CLI) | payer MEDICARE ==
--- NOTE | 2021-10-29 17:13 | Ultrasound Report ---
PROCEDURE: Abdomen Limited INDICATIONS: LIVER CYST TECHNIQUE: Real-time scanning was performed of the abdominal and retroperitoneal organs, with image documentatio n. COMPARISON: 02/17/2019.. FINDINGS: Liver: Liver is normal in size measuring 15.3 cm. Liver has diffusely coarse echogenic echotexture. There is a 1.3 x 1.2 x 1.5 cm hyperechoic lesion in the left lobe of the liver which may represent a hemangioma. There is a 6.5 x 5.7 x 7.3 cm cyst in the left lobe (previously 5.5 x 5.1 x 4.6 cm) and a 1.7 x 1.3 x 1.5 cm cyst near the renal hilum (previously 1.3 x 1.2 x 1.2 cm). Gallbladder: Gallbladder sonographically normal. No gallstones. Gallbladder wall measures 1.4 mm. No pericholecystic fluid. No sonographic Cota sign. Biliary ducts: Intrahepatic bile ducts are non-dilated. Extrahepatic bile duct caliber measures 4.4 mm. Normal is 6-7 mm or less in diameter, or 10 mm or less post-cholecystectomy. Pancreas: Visualized portions of the pancreas are sonographically normal. Kidney: Right kidney measures 11.6 cm long and is sonographically normal. Right parapelvic renal cyst s are noted. Nonobstructing stone noted in the right kidney. IMPRESSION: 1. Hepatic cysts not significantly changed compared to 02/17/2019. 2. 1.3 x 1.2 x 1.5 cm hyperechoic lesion left lobe liver which may represent a hemangioma. Recommend follow-up ultrasound in 3 months to confirm stability. 3. Echogenic liver. Finding typically represents fatty infiltration, however finding is nonspecific a nd other etiologies including hepatic cirrhosis can produce a similar appearance. Recommend correlati on with clinical and laboratory data. Reviewed by: Charissa Ramirez MD, PhD on 10/29/2021 5:12 PM PST Approved by: Charissa Ramirez MD, PhD on 10/29/2021 5:12 PM PST Station ID: [id number]
== END 2021-10-29 09:42 | disposition home or self-care (01) ==
LOC: DI 09:41
PROVIDERS: ATTEND Nurse Practitioner Family
DX: K76.89 Other specified diseases of liver (principal); R93.2 Abnormal findings on diagnostic imaging of liver and biliary tract

== ENCOUNTER 2021-12-18 17:15 | Emergency (ER) | payer MEDICARE ==
[2021-12-18] MEDS ORDERED: TETANUS/DIPHTHERIA/PERTUSSIS 0.5 ML SYRINGE IM ONE (17:42)
[2021-12-18] MEDS ORDERED: LIDOCAINE 1%-EPI 1:100000 20 ML MDV SUBQ STA (17:42)
--- NOTE | 2021-12-18 18:13 | ED Physician Documentation ---
History of Present Illness - Stated complaint Stated Complaint: GLF/HEAD INJ - Chief complaint Chief Complaint: Laceration - History obtained from History obtained from: Patient - History of Present Illness Timing: Today Pain level max: 0 Pain level now: 0 - Additonal information Additional information: 71-year-old female presents to the emergency department after a trip and fall in her driveway. She states that her glasses struck the ground and cut her left eyebrow. No headache. No head injury. No loss of consciousness. No nausea or vomiting. Does not take blood thinners. No neck or back pain. No numbness or tingling. No other injuries. She states that she noticed the cut when she went inside and saw blood dripping. Review of Systems Constitutional: denies: Fever, Chills Eyes: denies: Loss of vision, Decreased vision, Photophobia Nose: denies: Rhinorrhea / runny nose Throat: denies: Sore throat Cardiac: denies: Chest pain / pressure, Palpitations Respiratory: denies: Cough GI: denies: Abdominal Pain, Nausea, Vomiting, Diarrhea Skin: denies: Rash Musculoskeletal: denies: Neck pain, Back pain Neurologic: denies: Focal weakness, Numbness, Confused, Headache, LOC PD PAST MEDICAL HISTORY - Past Medical History Past Medical History: Yes Cardiovascular: Hypertension Respiratory: None Neuro: None Endocrine/Autoimmune: None GI: GERD COAL PASSER: None HEENT: Chronic vision loss Psych: Anxiety Derm: None - Past Surgical History Past Surgical History: Yes /COAL PASSER: Hysterectomy HEENT: Tonsil/Adenoidectomy, Other - Present Medications Home Medications: Ambulatory Orders Medication Instructions Recorded Confirmed Metoprolol Succinate [Toprol Xl] 50 mg PO DAILY 12/18/21 12/18/21 Omeprazole 40 mg PO 12/18/21 Propranolol HCl 20 mg PO PRN 12/18/21 - Allergies Allergies/Adverse Reactions: Allergies Allergy/AdvReac Type Severity Reaction Status Date / Time No Known Drug Allergies Allergy Verified 12/18/21 17:29 - Social History Does the pt smoke?: Yes Smoking Status: Current every day smoker Does the pt drink ETOH?: No Does the pt have substance abuse?: Yes - Immunizations Immunizations are current?: Yes - POLST Patient has POLST: No PD ED PE NORMAL - Vitals Vital signs reviewed: Yes - General General: Alert and oriented X 3, No acute distress, Well developed/nourished - HEENT HEENT: PERRL, Moist mucous membranes, Other (5 cm laceration the left eyebrow. Linear. Clean. Neurovascular intact Otherwise atraumatic scalp exam) - Neck Neck: Supple, no meningeal sign, No bony TTP, C-Spine cleared by NEXUS criteria - Cardiac Cardiac: RRR, Strong equal pulses - Respiratory Respiratory: No respiratory distress, Clear bilaterally - Abdomen Abdomen: Soft, Non tender, Non distended - Derm Derm: Warm and dry - Extremities Extremities: Normal ROM s pain - Neuro Neuro: Alert and oriented X 3, implementation lead 2-12 intact, No motor deficit, No sensory deficit, Normal speech Eye Opening: Spontaneous Motor: Obeys Commands Verbal: Oriented GCS Score: 15 - Psych Psych: Normal mood, Normal affect Results - Vitals Vitals: Vital Signs - 24 hr 12/18/21 12/18/21 12/18/21 17:21 18:14 18:15 Temperature 36.2 C L Heart Rate 72 68 Respiratory 16 18 14 Rate Blood Pressure 216/92 H 205/96 H O2 Saturation 98 98 98 Oxygen O2 Source Room air Procedures - Laceration (location) Left eyebrow Length in cm: 5 Wound type: Linear, Into subcut fat, Clean Neurovascular status: Sensory intact, Motor intact, Vascular intact Anesthesia: Lidocaine 1% with epi Wound preparation: Irrigated copiously NS, Wound explored Skin layer closure: Nylon, Interrupted, Size #-0 - enter number (5), Sutures - enter # (7) Other: Patient tolerated well, No complications, Neurovascular intact, Dressing applied, Tetanus booster given PD MEDICAL DECISION MAKING - ED course Complexity details: considered differential, d/w patient ED course: 71-year-old female with a laceration the left eyebrow. No scalp hematomas. No bruising. No abrasions. Likely secondary to the sunglasses she was wearing. We did discuss a head CT, patient declines this at this time. Head injury instructions given at bedside. Patient is not on blood thinners. GCS 15. Warnings of infection and instructions on wound care given at bedside. Also counseled on how to minimize scarring. Patient counseled regarding signs and symptoms for which I believe and urgent re-evaluation would be necessary. Patient with good understanding of and agreement to plan and is comfortable going home at this time This document was made in part using voice recognition software. While efforts are made to proofread this document, sound alike and grammatical errors may occur. Departure - Departure Disposition: 01 Home, Self Care Clinical Impression: Elevated blood pressure reading Facial laceration Qualifiers: Encounter type: initial encounter Qualified Code(s): S01.81XA - Laceration without foreign body of other part of head, initial encounter Closed head injury Qualifiers: Encounter type: initial encounter Qualified Code(s): S09.90XA - Unspecified injury of head, initial encounter Condition: Good Instructions: ED Head Injury Closed, ED Laceration Facial Sutr Tape Follow-Up: ASIM BEE ARNP [Primary Care Provider] - Within 1 week Comments: Please follow-up with your primary care provider in about 7 to 10 days for suture removal. Return if you worsen. Return especially for headaches, vomiting or other new or worrisome symptoms. Keep the wound clean. Return for redness, swelling or drainage from the wound. Discharge Date/Time: 12/18/21 18:15
[2021-12-18 18:15] VITALS: BP 205/96
== END 2021-12-18 18:15 | disposition home or self-care (01) ==
LOC: ED 17:15
DX: S01.112A Laceration without foreign body of left eyelid and periocular area, initial encounter (principal); S09.90XA Unspecified injury of head, initial encounter; W01.0XXA Fall on same level from slipping, tripping and stumbling without subsequent striking against object, initial encounter; Y92.007 Garden or yard of unspecified non-institutional (private) residence as the place of occurrence of the external cause; I10 Essential (primary) hypertension; F17.200 Nicotine dependence, unspecified, uncomplicated; Z23 Encounter for immunization
CPT/HCPCS: 12013; 90471; 99282; 99283

== ENCOUNTER 2021-12-31 17:19 | Outpatient (CLI) | payer MEDICARE ==
--- NOTE | 2021-12-31 17:55 | CT Report ---
PROCEDURE: HEAD WO INDICATIONS: DIZZINESS SINCE GLF W/ HEAD INJURY TECHNIQUE: Noncontrast 4.5 mm thick angled axial sections acquired from the foramen magnum to the vertex. For r adiation dose reduction, the following was used: automated exposure control, adjustment of mA and/or kV according to patient size. COMPARISON: None. FINDINGS: Image quality: Excellent. CSF spaces: Basal cisterns are patent. No extra-axial fluid collections. Ventricles are normal in size and shape. Brain: No midline shift. No intracranial masses or hemorrhage. Lee-white matter interface is norm al. Skull and face: Calvarium and visualized facial bones are intact, without suspicious lesions. Sinuses: Visualized sinuses and mastoids are clear. IMPRESSION: CT head without acute intracranial abnormalities. No acute hemorrhage. No mass or mass e ffect. No calvarial fractures. Reviewed by: Tapan Arce MD on 12/31/2021 5:53 PM PST Approved by: Tapan Arce MD on 12/31/2021 5:53 PM PST Station ID: [id number]
== END 2021-12-31 17:20 | disposition home or self-care (01) ==
LOC: DI 17:19
PROVIDERS: ATTEND Nurse Practitioner Family
DX: S09.90XD Unspecified injury of head, subsequent encounter (principal)

== ENCOUNTER 2023-08-04 13:50 | Emergency (ER) | payer MEDICARE ==
[2023-08-04 14:30] LABS: BASOPHILS # (AUTO) 0.1 10^3/uL (0.0-0.1); BASOPHILS % (AUTO) 0.8 %; EOSINOPHILS # (AUTO) 0.2 10^3/uL (0.0-0.7); EOSINOPHILS % (AUTO) 2.3 %; HCT - HEMATOCRIT 45.6 % (37.0-47.0); HGB - HEMOGLOBIN 15.2 g/dL (12.0-16.0); LYMPHOCYTES % (AUTO) 21.5 %; MEAN CORPUSCULAR HGB CONC 33.3 g/dL (32.0-36.0); MEAN CORPUSCULAR VOLUME 90.1 fL (81.0-99.0); MEAN PLATELET VOLUME 10.7 fL (7.9-10.8); MONOCYTES # (AUTO) 0.6 10^3/uL (0.0-1.0); MONOCYTES % (AUTO) 6.4 %; NEUTROPHILS # (AUTO) 6.5 10^3/uL (1.5-6.6); NEUTROPHILS % (AUTO) 68.6 %; PLT - PLATELET COUNT 316 10^3/uL (130-450); RED BLOOD COUNT 5.06 10^6/uL (4.20-5.40); RED CELL DISTRIBUTION WIDTH 13.3 % (12.0-15.0); WHITE BLOOD COUNT 9.5 x10^3/uL (4.8-10.8)
[2023-08-04 14:51] LABS: PARTIAL THROMBOPLASTIN TIME 32.5 secs (24.9-33.3)
[2023-08-04 14:55] LABS: INR 1.1 (0.8-1.2); PT - PROTHROMBIN TIME 11.6 secs (9.9-12.6)
[2023-08-04 14:58] LABS: ALBUMIN 4.5 g/dL (3.2-5.5); ALBUMIN/GLOBULIN RATIO 1.7 (1.0-2.2); BILIRUBIN,TOTAL 0.7 mg/dL (0.2-1.0); CALCIUM 9.5 mg/dL (8.5-10.3); CREATININE 0.6 mg/dL (0.6-1.3); TOTAL PROTEIN 7.2 g/dL (6.4-8.9)
[2023-08-04 15:54] LABS: BILIRUBIN,URINE NEGATIVE (NEGATIVE); GLUCOSE, URINE (UA) NEGATIVE (NEGATIVE); KETONES,URINE (UA) TRACE mg/dL (NEGATIVE); LEUKOCYTE ESTERASE, URINE TRACE (NEGATIVE); NITRITE,URINE POSITIVE (NEGATIVE); OCCULT BLOOD,URINE NEGATIVE (NEGATIVE); PROTEIN,URINE NEGATIVE (NEGATIVE); UROBILINOGEN,URINE 0.2 (NORMAL) E.U./dL (NORMAL)
[2023-08-04 15:58] LABS: CLARITY,URINE CLOUDY (CLEAR)
[2023-08-04 16:14] LABS: RBC,URINE 0-5 /HPF (0-5)
[2023-08-04] MEDS ORDERED: iohexoL-300 100 ML VIAL IVP ONE (16:14)
[2023-08-04 16:15] LABS: BACTERIA,URINE Many /HPF (None Seen); SQUAMOUS EPITHELIAL CELL,UR FEW Squamous (<= Few)
--- NOTE | 2023-08-04 17:09 | ED Physician Documentation ---
History of Present Illness - Stated complaint Stated Complaint: GI,BLOODSTOOL - Chief complaint Chief Complaint: Abd Pain - History obtained from History obtained from: Patient - History of Present Illness Timing: Today Pain level max: 3 Pain level now: 3 - Additonal information Additional information: Patient is a 72-year-old female who has had lower abdominal pain for the past several months. She states increasing more recently, feels like "gas pain". She states that she had bright red blood in the toilet this morning on the outside of the stool and a small amount on the toilet paper. No fevers. No chills. No recent surgery. Has not had a colonoscopy. Nothing makes it better or worse. Not on blood thinners. Review of Systems Constitutional: denies: Fever, Chills Cardiac: denies: Palpitations Respiratory: denies: Dyspnea, Cough GI: denies: Nausea, Vomiting : denies: Dysuria Skin: denies: Rash Musculoskeletal: denies: Neck pain, Back pain Neurologic: denies: Headache PD PAST MEDICAL HISTORY - Past Medical History Cardiovascular: Hypertension Respiratory: None Neuro: None Endocrine/Autoimmune: None GI: GERD GROUP DIRECTOR: None HEENT: Chronic vision loss Psych: Anxiety Derm: None - Past Surgical History Past Surgical History: Yes /GROUP DIRECTOR: Hysterectomy HEENT: Tonsil/Adenoidectomy, Other - Present Medications Home Medications: Ambulatory Orders Medication Instructions Recorded Confirmed Metoprolol Succinate [Toprol Xl] 50 mg PO DAILY 12/18/21 12/18/21 Omeprazole 40 mg PO DAILY 12/18/21 Propranolol HCl 20 mg PO PRN 12/18/21 - Allergies Allergies/Adverse Reactions: Allergies Allergy/AdvReac Type Severity Reaction Status Date / Time No Known Drug Allergies Allergy Verified 12/18/21 17:29 - Social History Does the pt smoke?: Yes Smoking Status: Current every day smoker Does the pt drink ETOH?: No Does the pt have substance abuse?: Yes - Immunizations Immunizations are current?: Yes - POLST Patient has POLST: No PD ED PE NORMAL - Vitals Vital signs reviewed: Yes - General General: Alert and oriented X 3, No acute distress - HEENT HEENT: Moist mucous membranes - Neck Neck: Supple, no meningeal sign - Cardiac Cardiac: RRR, Strong equal pulses - Respiratory Respiratory: No respiratory distress, Clear bilaterally - Abdomen Abdomen: Soft, Non tender, Non distended - Rectal Rectal: Other (small hemorrhoids, no active bleeding, RN Genia present.) - Back Back: No CVA TTP, No spinal TTP - Derm Derm: Warm and dry - Extremities Extremities: No edema, No calf tenderness / cord - Neuro Neuro: Alert and oriented X 3 - Psych Psych: Normal mood, Normal affect Results - Vitals Vitals: Vital Signs - 24 hr 08/04/23 08/04/23 08/04/23 14:12 17:28 17:57 Temperature 37.2 C 37.2 C Heart Rate 76 100 69 Respiratory 18 17 18 Rate Blood Pressure 215/104 H 123/77 O2 Saturation 97 98 97 Oxygen O2 Source Room air - Labs Labs: Laboratory Tests 08/04/23 08/04/23 08/04/23 14:21 14:21 14:21 WBC 9.5 RBC 5.06 Hgb 15.2 Hct 45.6 MCV 90.1 MCH 30.0 MCHC 33.3 RDW 13.3 Plt Count 316 MPV 10.7 Neut # (Auto) 6.5 Lymph # (Auto) 2.0 [place] # (Auto) 0.6 Eos # (Auto) 0.2 Baso # (Auto) 0.1 Absolute Nucleated RBC 0.00 Nucleated RBC % 0.0 PT 11.6 INR 1.1 APTT 32.5 Sodium 139 Potassium 4.0 Chloride 107 Carbon Dioxide 24 Anion Gap 8.0 BUN 19 Creatinine 0.6 Estimated GFR (MDRD) 99 Glucose 114 H Calcium 9.5 Total Bilirubin 0.7 AST 14 ALT 14 Alkaline Phosphatase 105 Total Protein 7.2 Albumin 4.5 Globulin 2.7 Albumin/Globulin Ratio 1.7 Lipase 14 Urine Color Urine Clarity Urine pH Ur Specific [place] Urine Protein Urine Glucose (UA) Urine Ketones Urine Occult Blood Urine Nitrite Urine Bilirubin Urine Urobilinogen Ur Leukocyte Esterase Urine RBC Urine WBC Ur Squamous Epith Cells Urine Bacteria Ur Microscopic Review Urine Culture Comments 08/04/23 15:40 WBC RBC Hgb Hct MCV MCH MCHC RDW Plt Count MPV Neut # (Auto) Lymph # (Auto) [place] # (Auto) Eos # (Auto) Baso # (Auto) Absolute Nucleated RBC Nucleated RBC % PT INR APTT Sodium Potassium Chloride Carbon Dioxide Anion Gap BUN Creatinine Estimated GFR (MDRD) Glucose Calcium Total Bilirubin AST ALT Alkaline Phosphatase Total Protein Albumin Globulin Albumin/Globulin Ratio Lipase Urine Color YELLOW Urine Clarity CLOUDY Urine pH 6.0 Ur Specific [place] 1.025 Urine Protein NEGATIVE Urine Glucose (UA) NEGATIVE Urine Ketones TRACE Urine Occult Blood NEGATIVE Urine Nitrite POSITIVE H Urine Bilirubin NEGATIVE Urine Urobilinogen 0.2 (NORMAL) Ur Leukocyte Esterase TRACE H Urine RBC 0-5 Urine WBC 6-10 H Ur Squamous Epith Cells FEW Squamous Urine Bacteria Many H Ur Microscopic Review INDICATED Urine Culture Comments INDICATED - Rads (name of study) CT abd/pel Relevant Findings:: Final report received, See rad report PD Medical Decision Making - ED course Complexity details: reviewed results, re-evaluated patient, considered differential, d/w patient ED course: 72-year-old female with what appears to be a small amount of bright red bleeding likely secondary to hemorrhoids. No significant lab abnormalities. No elevated white blood cell count. No anemia. CT scan does show possible mild colitis versus underdistention. Patient has no fevers. No evidence of diverticulitis or colitis. Urinalysis appears contaminated and she does not have any symptoms of UTI, therefore will hold antibiotics. Recommend that she have a colonoscopy with her doctor and recommend close follow-up with her PCP. Patient counseled regarding signs and symptoms for which I believe and urgent re-evaluation would be necessary. Patient with good understanding of and agreement to plan and is comfortable going home at this time This document was made in part using voice recognition software. While efforts are made to proofread this document, sound alike and grammatical errors may occur. Departure - Departure Disposition: 01 Home, Self Care Clinical Impression: Lower abdominal pain Condition: Good Instructions: ED Hematochezia Stable Follow-Up: MYLENE MCLEOD ARNP [Primary Care Provider] - Within 1 week Comments: Your CT scan does not show any acute abnormalities today. It is important that you follow-up with your primary care provider for further care and to have a colonoscopy performed. You also appear to have a right adrenal nodule, this needs follow-up imaging with either an MRI or CT with an adrenal mass protocol. This can be ordered by your doctor. Forms: PCP List Discharge Date/Time: 08/04/23 17:59
--- NOTE | 2023-08-04 17:10 | CT Report ---
PROCEDURE: ABDOMEN/PELVIS W INDICATIONS: lower abd pain, rectal bleeding CONTRAST: 100mL Omni 300 TECHNIQUE: After the administration of intravenous contrast, 5 mm thick sections acquired from the diaphragms to the symphysis. 5 mm thick coronal and sagittal reformats were acquired. For radiation dose reducti on, the following was used: automated exposure control, adjustment of mA and/or kV according to emil ent size. COMPARISON: Ultrasound 10/29/2019 FINDINGS: Image quality: Excellent. Lung bases and heart: Unremarkable. Liver: No solid mass. Multiple hepatic cysts. Suspected perfusion anomaly at the liver dome. Gallbladder and biliary tree: No radiopaque stones or wall thickening. No biliary dilation. Spleen: No splenomegaly. Pancreas: No pancreatic ductal dilation. Adrenals: 1 cm right adrenal nodule. Kidneys and ureters: No hydronephrosis. No renal cystic lesion which requires follow up. No solid mas s. Bowel and peritoneum: Mild colonic wall thickening of the sigmoid colon, although the segment is deco mpressed. Probable gastric cardia diverticulum. Colonic diverticulosis without evidence of diverticul itis. Multiple radiopaque medications within the large bowel. Lymph nodes: No central or retroperitoneal adenopathy. Vessels: No infrarenal aortic aneurysm. PELVIS Reproductive organs: Unremarkable. Bladder: No abnormal wall thickening, accounting for underdistension. Pelvic lymph nodes: No pelvic adenopathy by size criteria. Bones: No aggressive osseous abnormality. Other: No significant ventral or inguinal hernia. IMPRESSION: Mild colonic wall thickening of the sigmoid colon, although the segment is decompressed. Differential includes colitis or artifact of underdistention. Multiple radiopaque medications within the large bowel. Correlate with iron medication, as this can c ause abdominal pain. 1 cm right adrenal nodule. Recommend nonemergent dedicated imaging with MRI or CT (adrenal mass juan col). Reviewed by: Martin Govea on 08/04/2023 5:08 PM PDT Approved by: Martin Govea on 08/04/2023 5:08 PM PDT Station ID: [id number]
[2023-08-04 17:35] VITALS: BP 123/77
[2023-08-04 18:01] VITALS: O2SAT 97
--- NOTE | 2023-08-06 12:37 | ED Physician Documentation ---
ED Addendum - Addendum Addendum: 08/06/23 12:36 Culture reviewed, no symptoms of UTI, no white count or fever documented. Suspect this is colonization not infection.
== END 2023-08-04 17:59 | disposition home or self-care (01) ==
LOC: ED 13:50
DX: R10.30 Lower abdominal pain, unspecified (principal); I10 Essential (primary) hypertension; F17.200 Nicotine dependence, unspecified, uncomplicated
CPT/HCPCS: 36415; 74177; 80053; 81001; 83690; 85025; 85610; 85730; 87086; 99283; 99284; Q9967; 81003; 87181

== ENCOUNTER 2023-08-13 09:31 | Outpatient (CLI) | payer MEDICARE ==
--- NOTE | 2023-08-13 19:32 | Ultrasound Report ---
PROCEDURE: Abdomen Limited INDICATIONS: RIGHT SIDED ABD PAIN TECHNIQUE: Real-time focused scanning was performed of the abdomen, with image documentation. COMPARISONS: CT abdomen and pelvis on August 04, 2023. Abdominal ultrasound on October 29, 2021. FINDINGS: Liver: Liver is normal in size with diffusely increased echogenicity. Multiple hepatic cysts as see n on CT dated August 04, 2023. Left hepatic lobe hepatic cyst is unchanged measuring 7.3 x 6.3 x 7.8 cm. Additional smaller anechoic simple cyst in the right hepatic lobe measuring 1.7 x 0.8 x 1.1 cm. Previously seen hemangioma is no t well seen today. Gallbladder: No stones or sludge. Normal wall thickness measuring 2 mm. Biliary ducts: Intrahepatic bile ducts are non-dilated. Extrahepatic bile duct caliber measures 5 m m. Normal is 6-7 mm or less in diameter, or 10 mm or less post-cholecystectomy. Pancreas: Visualized portions of the pancreas are sonographically normal. Right kidney: Normal in size and echotexture. Right kidney measures 11.5 cm long. No hydronephrosis or nephrolithiasis. No solid masses. No complex renal cystic lesions which require follow-up. Query a renal cyst at the renal hilum. Aorta: Visualized aorta is normal in caliber at less than 3 cm. IVC: Intrahepatic inferior vena cava is patent. Miscellaneous: No free abdominal fluid. IMPRESSION: 1. No acute sonographic abnormality. 2. Multiple hepatic cysts. Large cyst in the left hepatic lobe is stable. Previously queried hemangio ma is not well seen. 3. Liver parenchyma is diffusely echogenic which is nonspecific and may be seen in the setting of piotr atosis. Reviewed by: Yogesh Jimenez MD on 08/13/2023 7:31 PM PDT Approved by: Yogesh Jimenez MD on 08/13/2023 7:31 PM PDT Station ID: [id number]
== END 2023-08-13 09:32 | disposition home or self-care (01) ==
LOC: DI 09:31
PROVIDERS: ATTEND Registered Nurse
DX: K76.89 Other specified diseases of liver (principal); R10.9 Unspecified abdominal pain